=== PATIENT | male | born 1955 | race Caucasian/White ===

== ENCOUNTER 2020-01-01 11:41 | Outpatient (CLI) | payer OTHER, SELFPAY ==
--- NOTE | 2020-01-01 12:46 | ECG_ITS ---
Measurements Intervals [place] Rate: 71 P: 57 PA: 221 QRS: -21 QRSD: 79 T: 17 QT: 393 QTc: 428 Interpretive Statements SINUS RHYTHM WITH FIRST DEGREE AV BLOCK DELAYED PRECORDIAL R/S TRANSITION ABNORMAL ECG Electronically Signed On 01-01-2020 13:08:39 CDT by Jayro Mosley D.O.
[2020-01-01 13:36] LABS: Basophils Absolute Auto 0.1 K/mm3 (0.0-0.1); Basophils Percent Auto 1.1 % (0.2-1.2); Eosinophils Absolute Auto 0.1 K/mm3 (0-0.3); Hematocrit 44.5 % (42.0-52.0); Immature Granulocyte Absolute 0.01 K/mm3 (0.00-0.031); Immature Granulocyte Percent A 0.2 % (0-0.5); Lymphocytes Absolute Auto 2.42 K/mm3 (0.9-3.2); Lymphocytes Percent Auto 36.3 % (18.3-44.2); Mean Corpuscular HGB Conc 33.7 g/dl (32-36); Mean Corpuscular Hemoglobin 31.6 pg (26-34); Mean Corpuscular Volume 93.9 fl (80-100); Mean Platelet Volume 9.9 fl (7.4-10.4); Monocytes Absolute Auto 0.4 K/mm3 (0.1-0.6); Monocytes Percent Auto 6.2 % (2.6-8.5); Neutrophils Absolute Auto 3.6 K/mm3 (1.3-6.7); Neutrophils Percent Auto 54.2 % (45.5-73.1); Platelet Count Result 231 k/mm3 (150-375); Red Blood Count 4.74 M/mm3 (4.6-6.20); Red Cell Distribution Width 13.2 % (11.5-14.5); White Blood Count 6.7 K/mm3 (4.5-10.0)
[2020-01-01 13:39] LABS: Add Urine Microscopic? YES; Appearance Urine Clear (Clear); Bilirubin Urine Negative (Negative); Blood Urine Negative (Negative); Color Urine Colorless (Yellow); Glucose Urine UA Negative (Negative); Ketones Urine Negative (Negative); Leukocyte Esterase Ur Negative LEU/UL (Negative); Nitrate Urine Negative (Negative); Protein Urine Negative (Negative); RBC Urine 0-2 /hpf (0-2); Specific Grav Ur 1.006 (1.001-1.035); Urobilinogen Urine Negative mg/dL (<2.0); WBC Urine 0-3 /hpf
[2020-01-01 13:49] LABS: Hemoglobin A1C 5.6 % (<5.7); Urine Cotinine NEGATIVE
[2020-01-01 13:51] LABS: INR 1.1; Prothrombin Time 13.5 Seconds (11.1-14.7)
[2020-01-01 13:52] LABS: Partial Thromboplastin Time 26.4 SECONDS (22.3-36.8)
== END 2020-01-01 11:42 | disposition home or self-care (01) ==
LOC: ANHSURGERY 11:43
PROVIDERS: PCP Emergency Medicine; Visit Provider Orthopaedic Surgery
DX: Z01.818 Encounter for other preprocedural examination (principal); M17.11 Unilateral primary osteoarthritis, right knee; R94.31 Abnormal electrocardiogram [ECG] [EKG]
CPT/HCPCS: 36415; 80307; 81001; 83036; 85025; 85610; 85730; 86850; 86900; 86901; 87081; 93005

== ENCOUNTER 2020-01-06 06:23 | Outpatient (CLI) | payer OTHER, SELFPAY ==
[2020-01-06 17:27] LABS: SARS-CoV-2 RNA PCR Negative
== END 2020-01-06 06:24 | disposition home or self-care (01) ==
LOC: ANHCOVIDDT 06:23
PROVIDERS: PCP Emergency Medicine; Visit Provider Orthopaedic Surgery
DX: Z01.812 Encounter for preprocedural laboratory examination (principal); Z11.59 Encounter for screening for other viral diseases
CPT/HCPCS: 87635; C9803; U0003

== ENCOUNTER 2020-01-10 14:30 | Observation (INO) | payer OTHER, SELFPAY ==
[2020-01-01 12:02] VITALS: BMI 37.6
[2020-01-01 12:48] VITALS: BP 137/72; PULSE 72; RESP 18; TEMP 37.1; O2SAT 99
[2020-01-09] VITALS (11 sets, daily range): BP systolic 107–129; BP diastolic 56–75; PULSE 66–98; RESP 10–20; TEMP 35.9–36.7; O2SAT 67–100; BMI 36.4; BMI 37.8
[2020-01-09] MEDS: LACTATED RINGERS 1,000 ML 30 ML IV CONT ×2 (11:45→15:11)
--- NOTE | 2020-01-09 12:04 | WPDHPUPDATE1 ---
History and Physical Update Update Date/Time: 01/09/20 12:04 History and Physical has been reviewed, including an updated exam of the patient. There are NO changes in the patient's condition. Risks, benefits, and alternatives have been discussed and questions answered. Patient agrees to proceed with procedure.
[2020-01-09] MEDS: TRANEXAMIC ACID 1,000MG/ISO100 1,000 MG/100 ML BAG 200 MG IVPB (12:12)
--- NOTE | 2020-01-09 12:27 | WPDANESEPPF ---
Anes - Initial Pre Proc Eval Procedure: Operation Date: 01/09/20 13:00 Proposed Procedures p Right Total Knee Arthroplasty - Juan Jones MD Date/Time: 01/09/20 12:27 Surgeon: Juan Jones MD Pre Op Diagnosis: Right Knee DJD Patient Data Age: 64 Gender: M Height: 6 ft 1 in Weight: 125.4 kg Last Vital Signs Temp 37.1 C 01/01/20 12:48 Pulse 72 01/01/20 12:48 Resp 18 01/01/20 12:48 BP 137/72 01/01/20 12:48 Pulse Ox 99 01/01/20 12:48 Allergies Allergy/AdvReac Type Severity Reaction Status Date / Time No Known Allergies Allergy Verified 01/01/20 12:04 Home Medications Medication Instructions Recorded Confirmed Type cholecalciferol (vitamin D3) 25 2,000 unit PO DAILY cap 06/05/19 01/09/20 History mcg (1,000 unit) capsule latanoprost 0.005 % eye drops 1 drop EACH EYE HS 06/05/19 01/09/20 History chlorhexidine gluconate 4 % 1 applic TOPICAL ONCE #237 ml 12/21/19 01/01/20 Rx topical liquid ascorbic acid (vitamin C) 1 g PO DAILY 01/01/20 01/09/20 History cetirizine [Zyrtec] 10 mg PO DAILY PRN 01/01/20 01/09/20 History ibuprofen 200 mg PO Q6H PRN 01/01/20 01/09/20 History Patient hx anesthesia problems: none Family hx anesthesia problems: none PMFSH Past Medical History Medical History Arthritis Dizziness Sleep apnea Vision abnormalities Weight gain Family History Family History Mother Family history of Alzheimer's disease, Onset Age: 81 Father Family history of renal failure, Onset Age: 91 Other Family history of arthritis Family history of malignant neoplasm Social History Social History Smoking packs per day: 1.5 Smoking cigarettes per day: 30.0 Years smoked: 12 Smoking pack-years: 18.00 Smoking status: Former smoker Tobacco type: cigarettes Second hand tobacco smoke exposure: No Alcohol intake: current Alcohol use details: ONE DRINK EVERY 2 MONTHS Substance use type: does not use Living arrangements: with family Spiritual care concerns: No Anes - Eval Final PreProcedure Day of Procedure 01/09/20 12:27 Patient weight: obese Heart: regular rate and rhythm Lungs: decreased breath sounds Airway: Mallampati scale class II Neurological: alert and oriented Last oral intake: >/= 8 hours ASA classification: III Emergent: no Anesthetic plan: proceed Anesthesia type and monitoring: general LMA and standard monitoring Informed Consent: The patient's anesthetic plan and its attendant risks and benefits were discussed with the patient/family/POA. Questions were solicited and answers provided to the satisfaction of the patient/family/POA.
[2020-01-09] MEDS: IBUPROFEN IV 800 MG/200 ML 800 MG/200 ML BAG 400 MG IVPB (12:42)
[2020-01-09] MEDS: ceFAZolin 3 GM/D5W 100 ML 100 ML IVPB (12:49)
[2020-01-09] MEDS: TRANEXAMIC ACID 1,000 MG/10 ML AMPUL 1000 MG IV PUSH (14:12)
--- NOTE | 2020-01-09 15:00 | PM.OP ---
Procedure Note - Brief Procedure Note - Brief Date of procedure: 01/09/20 Pre-op diagnosis: Right Knee DJD Post-op diagnosis: same Procedure performed: R TKA Anesthesia: GETA Surgeon: Juan Jones MD Estimated blood loss (mL): 200 Complications: No immediate complications Condition: stable Disposition: PACU
--- NOTE | 2020-01-09 15:15 | SUR.PHASEI ---
radiology here for xray
--- NOTE | 2020-01-09 15:34 | WPDANESPNB ---
Anes - Peripheral Nerve Block Date/Time: 01/09/20 15:34 I have discussed with the patient/family/POA the placement of a peripheral nerve block for post-operative pain management, including associated risks, benefits, complications, and side effects. Alternative methods of post-operative analgesia were detailed. Questions were solicited and answers provided to the satisfaction of the patient/family/POA. Time-Out: A pre-procedural Time-Out was completed immediately before starting the procedure and confirmed: Patient Identification, Site, Procedure, Patient Position and the Availability of Requisite Equipment. Clinical Indications: Acute post-operative pain management requested by the operative surgeon. Nerve Block Insertion Note Anes-nerve block: femoral right Patient position: supine Needle: 22 gauge, stimulating, insulated echogenic needle. Needle length: 80 mm Technique: nerve stimulation lost at (mA) (0.21) Technique comment: mid2mg [id number] Injectate: dexamethasone (mg) (4mg) and bupivacaine 0.25% with epi 5 mcg/ml (30ml) Observations: tolerated well Complications: none Procedure start time:: 123 Procedure end time:: 1234
--- NOTE | 2020-01-09 15:36 | SUR.PHASEI ---
Spouse updated Milana [phone]
--- NOTE | 2020-01-09 16:30 | ADMGEN ---
This patient, Alan Laws, was admitted to 2 Medical Room 260-. Patient/family oriented to hospital policies and general routines including ID bracelet, bed and alarms, visiting hours, pain management, procedures, bathroom and other care routines, personal items, smoking policy, room service/diet, and visiting hours. Valuables list has been completed. Information on how to activate the Rapid Response Team has been discussed. Patient/Family are encouraged to report perceived risks to care and to ask questions if they do not understand what they are told or what they should do.
[2020-01-09] MEDS: DOCUSATE SODIUM 100 MG CAPSULE PO (18:23)
[2020-01-09] MEDS: CELECOXIB 200 MG CAPSULE PO (18:23)
--- NOTE | 2020-01-09 19:00 | OP_ITS ---
DATE OF PROCEDURE: 01/09/2020 PREOPERATIVE DIAGNOSIS: Right knee degenerative joint disease. POSTOPERATIVE DIAGNOSIS: Right knee degenerative joint disease. PROCEDURE: Right total knee arthroplasty. ANESTHESIA: General. COMPLICATIONS: None. INDICATIONS: This is a 64-year-old male with severe arthrosis to the right knee. He was indicated for right total knee arthroplasty. DESCRIPTION OF PROCEDURE: The patient was taken to the operating room in stable condition and placed in supine position. General anesthesia was induced. Then, the right lower extremity was prepped and draped sterilely from the toes to the thigh. A midline skin incision made. Medial parapatellar arthrotomy was made. The patella was everted. There was severe arthrosis in all 3 compartments of the knee joint. An IM katie was placed in the tibia. The patient had approximately 20 degree flexion contracture prior to incision. A distal femoral cut was made removing approximately 12 mm of bone from the high side of the femur. The knee was sized then to 75, so a cutting block was placed in 3 degrees of external rotation. This also was in line with Whitesides line and the transepicondylar axis. Anterior, posterior, and chamfer cuts were made to the femur. The cuts were excellent. Next, an IM katie was placed in the tibia and a transtibial cut was made removing approximately 10 mm of bone from the high side of the tibia. The tibia was planed to a smooth surface. The cut was excellent. The posterior osteophytes from the femur were removed with an osteotome. An 83 tibial trial was placed and aligned with the 1/3rd medial aspect of the tibial tubercle and then a 75 femoral trial was placed and then a 10 CR poly was placed. The knee came out to full extension. There was no flexion contracture. There was good stability in varus valgus stress in both flexion extension. The patella tracked without any tilt and there was no excessive rollback in flexion. The 4 corners test was used on the tibial component to make sure that there was a smooth and plane surface. Next, the trials were removed and then the Biomet 83 tibial component was press-fit into place and there were no gaps and the fit was excellent. Next, the 75 femoral component then was press-fit into the femur. The cuts were excellent and flush with the components. Then, a 10 polyethylene liner CR type was tapped and secured into place. The knee came out to full extension, there was good stability with varus valgus stress. There was good anterior-posterior stability. The patella tracked without any tilt. There was no excessive rollback in flexion. The tourniquet was deflated. The bleeders were cauterized and then the knee was irrigated thoroughly with sterile Betadine, sterile water for 3 minutes. Then, the arthrotomy was approximated with #1 Vicryl suture, subcu tissues with 2-0 Vicryl, and the skin was approximated with angel. Wound was washed, placed sterile dressing. The patient then was extubated and sent to Recovery. Brielle I MT: Maylin
[2020-01-09] MEDS: LATANOPROST 0.005% OP SOLN 2.5 ML BTL 1 DROP EACH EYE (21:26)
[2020-01-09] MEDS: ceFAZolin 2 GM/D5W 50 ML 2 GM/50 ML BAG IVPB (21:26)
[2020-01-09] MEDS: diazePAM 5 MG TABLET PO (22:02)
[2020-01-09] MEDS: WATER FOR IRRIGATION, STERILE 1,000 ML BOTTLE 1000 ML (22:02)
--- NOTE | ~2020-01-10 | XR_ITS ---
EXAMINATION: XR knee RT 2V DATE: 01/09/2020 15:21 INDICATION: Total right knee arthroplasty. Postop. TECHNIQUE: 2 views of right knee were obtained. COMPARISON: Right knee radiograph 12/21/2019 FINDINGS: There is a total right knee arthroplasty without patellar resurfacing in near-anatomic alig nment. No fracture. There is gas in the soft tissues, consistent with recent surgery. Anterior skin s taples are noted. IMPRESSION: 1. Total right knee arthroplasty in near-anatomic alignment. Reviewed, dictated and finalized at location A.
[2020-01-10 01:50] VITALS: BP 126/67; PULSE 79; RESP 18; TEMP 36.4; O2SAT 100
--- NOTE | 2020-01-10 05:03 | PM.IMCN ---
Assessment and Plan Assessment and plan (1) S/P total knee arthroplasty: Code(s): Z96.659 - Presence of unspecified artificial knee joint Status: Acute Assessment and Plan: Continue Ortho recommendations. (2) Hyperlipidemia: Qualifiers: Hyperlipidemia type: unspecified Qualified Code(s): E78.5 - Hyperlipidemia, unspecified Code(s): E78.5 - Hyperlipidemia, unspecified Status: Chronic (3) Glaucoma: Qualifiers: Glaucoma type: other Laterality: unspecified laterality Qualified Code(s): H40.89 - Other specified glaucoma Code(s): H40.9 - Unspecified glaucoma Status: Chronic Assessment and Plan: Continue Glaucoma eye drops. (4) ANAN (obstructive sleep apnea): Code(s): G47.33 - Obstructive sleep apnea (adult) (pediatric) Status: Chronic Assessment and Plan: Continue CPAP Additional Plan Date of service was 01/10/2020 at 5 am. HPI Data of Consult Consult date: 01/11/20 Requesting Physician: Juan Jones MD Primary Care Provider: Monty Bustamante MD Consult Narrative Narrative: Thank you for consulting us to see this 64 year old male who is s/p right total knee arthroplasty. On my encounter with the patient he was asleep and I awoke him. He denies any complaints at this time. Denies any chest pain, fevers, chills, cough, abdominal pain, dysuria, hematuria, or diarrhea. Review of Systems Review of Systems: All systems reviewed & are unremarkable except as noted in HPI and below PMFSH Past Medical History Medical History Arthritis Dizziness Sleep apnea Vision abnormalities Weight gain Family History Family History Mother Family history of Alzheimer's disease, Onset Age: 81 Father Family history of renal failure, Onset Age: 91 Other Family history of arthritis Family history of malignant neoplasm Social History Social History Smoking packs per day: 1.5 Smoking cigarettes per day: 30.0 Years smoked: 12 Smoking pack-years: 18.00 Smoking status: Never smoker Tobacco type: cigarettes Second hand tobacco smoke exposure: No Alcohol intake: never Substance use: never Substance use type: does not use Gender identity (if verbalized by the patient): Male Spiritual care concerns: No Meds Home Medications and Allergies Home Medications Medication Instructions Recorded Confirmed Type cholecalciferol (vitamin D3) 25 2,000 unit PO DAILY cap 06/05/19 01/09/20 History mcg (1,000 unit) capsule latanoprost 0.005 % eye drops 1 drop EACH EYE HS 06/05/19 01/09/20 History chlorhexidine gluconate 4 % 1 applic TOPICAL ONCE #237 ml 12/21/19 01/09/20 Rx topical liquid ascorbic acid (vitamin C) 1 g PO DAILY 01/01/20 01/09/20 History cetirizine [Zyrtec] 10 mg PO DAILY PRN 01/01/20 01/09/20 History ibuprofen 200 mg PO Q6H PRN 01/01/20 01/09/20 History Allergies Allergy/AdvReac Type Severity Reaction Status Date / Time No Known Allergies Allergy Verified 01/01/20 12:04 Vital Signs Vital Signs - 24 hr 01/09/20 12:27 01/09/20 15:15 01/09/20 15:30 Temperature 35.9 C L 36.7 C Pulse Rate 69 81 69 Respiratory Rate 20 10 L 14 Blood Pressure 118/56 L 115/65 115/75 Pulse Oximetry 99 96 98 01/09/20 15:45 01/09/20 16:00 01/09/20 16:25 Temperature 36.4 C L Pulse Rate 73 67 68 Respiratory Rate 12 14 16 Blood Pressure 116/72 107/75 116/71 Pulse Oximetry 96 95 96 01/09/20 16:40 01/09/20 17:10 01/09/20 18:10 Temperature 36.2 C L 36.3 C L 36.1 C L Pulse Rate 71 98 66 Respiratory Rate 18 18 16 Blood Pressure 122/65 120/65 129/64 Pulse Oximetry 98 67 L 100 01/09/20 20:00 01/09/20 21:57 01/10/20 01:50 Temperature 36.4 C L 36.4 C L 36.4 C Pulse Rate 69 69 79 Respiratory Rate 2
[2020-01-10] MEDS: ceFAZolin 2 GM/D5W 50 ML 2 GM/50 ML BAG IVPB ×2 (05:05→12:25)
[2020-01-10 05:28] LABS: Basophils Percent Auto 0.1 % (0.2-1.2); Hematocrit 36.5 % (42.0-52.0); Hemoglobin 12.3 g/dL (14.0-18.0); Immature Granulocyte Absolute 0.07 K/mm3 (0.00-0.031); Immature Granulocyte Percent A 0.5 % (0-0.5); Lymphocytes Absolute Auto 1.49 K/mm3 (0.9-3.2); Lymphocytes Percent Auto 10.4 % (18.3-44.2); Mean Corpuscular HGB Conc 33.7 g/dl (32-36); Mean Corpuscular Hemoglobin 31.3 pg (26-34); Mean Corpuscular Volume 92.9 fl (80-100); Mean Platelet Volume 9.3 fl (7.4-10.4); Monocytes Absolute Auto 1.4 K/mm3 (0.1-0.6); Monocytes Percent Auto 9.6 % (2.6-8.5); Neutrophils Absolute Auto 11.4 K/mm3 (1.3-6.7); Neutrophils Percent Auto 79.4 % (45.5-73.1); Platelet Count Result 213 k/mm3 (150-375); Red Blood Count 3.93 M/mm3 (4.6-6.20); Red Cell Distribution Width 12.6 % (11.5-14.5); White Blood Count 14.3 K/mm3 (4.5-10.0)
[2020-01-10 05:46] LABS: Blood Urea Nitrogen 13 mg/dL (9-20); Calcium 8.6 mg/dL (8.4-10.2); Carbon Dioxide 25 mmol/L (22-30); Chloride 105 mmol/L (98-107); Estimated CRCL calculation 116 ml/min; Estimated Glomerular Filt Rate > 60; Glucose 127 mg/dL (75-110); Potassium 4.8 mmol/L (3.4-5.0); Sodium 134 mmol/L (137-145)
[2020-01-10 05:57] VITALS: BP 113/68; PULSE 83; RESP 18; TEMP 36.4; O2SAT 99
[2020-01-10] MEDS: LORATADINE 10 MG TABLET PO (08:15)
[2020-01-10] MEDS: CELECOXIB 200 MG CAPSULE PO ×2 (08:15→17:05)
[2020-01-10] MEDS: DOCUSATE SODIUM 100 MG CAPSULE PO ×2 (08:15→17:05)
[2020-01-10] MEDS: ASPIRIN 325 MG ENTERIC TABLET 650 MG PO (08:15)
[2020-01-10] MEDS: ASCORBIC ACID 500 MG TABLET 1000 MG PO (08:15)
[2020-01-10] MEDS: CHOLECALCIFEROL 1,000 UNIT TABLET 2000 UNITS PO (08:15)
--- NOTE | 2020-01-10 09:58 | WPDANESPN ---
Anes - Prog Note Post-Op Date/Time: 01/10/20 09:58 Cardiovascular status: normal Respiratory status: normal Airway patency: baseline Mental status: baseline Post-Op hydration status: normal Vital Signs: Last Vital Signs Temp 97.6 F 01/10/20 05:57 Pulse 83 01/10/20 05:57 Resp 18 01/10/20 05:57 BP 113/68 01/10/20 05:57 Pulse Ox 99 01/10/20 05:57 I/O: Intake & Output 01/09/20 01/10/20 01/10/20 23:59 07:59 15:59 Intake Total 250 550 240 Output Total 2475 Balance 250 -1925 240 Laboratory Tests 01/10/20 05:18 01/10/20 05:18 01/10/20 01/10/20 05:18 05:18 WBC 14.3 H RBC 3.93 L Hgb 12.3 L Hct 36.5 L MCV 92.9 MCH 31.3 MCHC 33.7 RDW 12.6 Plt Count 213 MPV 9.3 Immature Gran % (Auto) 0.5 Neut % (Auto) 79.4 H Lymph % (Auto) 10.4 L [place] % (Auto) 9.6 H Eos % (Auto) 0.0 Baso % (Auto) 0.1 L Lymph # (Auto) 1.49 [place] # (Auto) 1.4 H Eos # (Auto) 0.0 Baso # (Auto) 0.0 Abs Immat Gran (auto) 0.07 H Absolute Neuts (auto) 11.4 H Absolute Nucleated RBC 0.0 Nucleated RBC % 0.0 Sodium 134 L Potassium 4.8 Chloride 105 Carbon Dioxide 25 BUN 13 Creatinine 0.80 Estim Creat Clear Calc 116 Estimated GFR > 60 Glucose 127 H Calcium 8.6 Post-procedural complaints: none Patient Feedback: Patient satisfied with anesthetic care. continued pain relief from FNB
[2020-01-10 10:00] VITALS: BP 105/60; PULSE 94; RESP 18; TEMP 36.7; O2SAT 100
--- NOTE | 2020-01-10 11:21 | WPDPN ---
Progress Note: A&P Additional Plan POD 1 DOING WELL. CONTINUE PT Exam Extrem: Other: VSS AFEBRILE DRESSING DRY NV INTACT NEG HOMANS SIGN Objective Data Vital Signs Vital Signs: Vital Signs - 24 hr 01/09/20 12:27 01/09/20 15:15 01/09/20 15:30 Temperature 35.9 C L 36.7 C Pulse Rate 69 81 69 Respiratory Rate 20 10 L 14 Blood Pressure 118/56 L 115/65 115/75 Pulse Oximetry 99 96 98 01/09/20 15:45 01/09/20 16:00 01/09/20 16:25 Temperature 36.4 C L Pulse Rate 73 67 68 Respiratory Rate 12 14 16 Blood Pressure 116/72 107/75 116/71 Pulse Oximetry 96 95 96 01/09/20 16:40 01/09/20 17:10 01/09/20 18:10 Temperature 36.2 C L 36.3 C L 36.1 C L Pulse Rate 71 98 66 Respiratory Rate 18 18 16 Blood Pressure 122/65 120/65 129/64 Pulse Oximetry 98 67 L 100 01/09/20 20:00 01/09/20 21:57 01/10/20 01:50 Temperature 36.4 C L 36.4 C L 36.4 C Pulse Rate 69 69 79 Respiratory Rate 20 20 18 Blood Pressure 125/71 125/71 126/67 Pulse Oximetry 99 99 100 01/10/20 05:57 01/10/20 10:00 Temperature 36.4 C 36.7 C Pulse Rate 83 94 Respiratory Rate 18 18 Blood Pressure 113/68 105/60 Pulse Oximetry 99 100 Intake/Output Intake/Output: Intake & Output 01/07/20 01/08/20 01/09/20 01/10/20 23:59 23:59 23:59 23:59 Intake Total 650 790 Output Total 4245 Balance 650 -4912 Meds/Results Medications: Active Medications Generic Name Dose Route Start Last Admin Trade Name Freq PRN Reason Stop Dose Admin Acetaminophen 1,000 mg 01/09/20 16:12 Tylenol Tablet PO Q6H PRN Mild Pain (1-3) Hydrocodone Bitart/Acetaminophen 1 tab 01/09/20 17:00 01/10/20 08:16 [place] 7.5-325 Mg PO 1 tab Q4HR PARAG Administration Ascorbic Acid 1,000 mg 01/10/20 09:00 01/10/20 08:15 Vitamin C PO 1,000 mg DAILY PARAG Administration Aspirin 650 mg 01/10/20 09:00 01/10/20 08:15 Aspirin Ec PO 650 mg DAILY PARAG Administration Celecoxib 200 mg 01/09/20 17:00 01/10/20 08:15 Celebrex PO 200 mg BIDWM PARAG Administration Diazepam 5 mg 01/09/20 16:12 01/09/20 22:02 Valium Po PO 5 mg Q8H PRN Administration Spasms Diphenhydramine HCl 25 mg 01/09/20 16:12 Benadryl Inj IV PUSH Q6H PRN Itching Docusate Sodium 100 mg 01/09/20 17:00 01/10/20 08:15 Colace Capsule PO 100 mg BID PARAG Administration Cefazolin Sodium 2 gm in 50 mls @ 100 mls/hr 01/09/20 21:00 01/10/20 05:35 Ancef 2 Gm/D5w 50 Ml IVPB 01/10/20 13:29 Infused Q8H [facility] Infusion Latanoprost 1 drop 01/09/20 21:00 01/09/20 21:26 Xalatan EACH EYE 1 drop HS PARAG Administration Loratadine 10 mg 01/09/20 16:12 01/10/20 08:15 Claritin PO 10 mg DAILY PRN Administration Allergy Symptoms Morphine Sulfate 4 mg 01/09/20 16:12 Morphine Sulfate Inj IV PUSH Q2H PRN Breakthrough pain rated 7-10 Morphine Sulfate 2 mg 01/09/20 16:12 Morphine Sulfate Inj IV PUSH Q2H PRN Breakthrough pain rated 4-6 Naloxone HCl 0.1 mg 01/09/20 16:12 Narcan IV PUSH Q2M PRN Opiate Reversal Ondansetron HCl 4 mg 01/09/20 16:12 Zofran Inj IV PUSH Q4H PRN Nausea And Vomiting Oxycodone/Acetaminophen 1 tablet 01/09/20 16:12 Percocet 5-325 Mg PO Q4H PRN Pain Rated 4-6 Vitamin D 2,000 unit 01/10/20 09:00 01/10/20 08:15 Vitamin D PO 2,000 unit DAILY PARAG Administration Radiology Results: ITS Impressions Knee X-Ray 01/09/20 15:23 IMPRESSION: 1. Total right knee arthroplasty in near-anatomic alignment. Labs Labs: Laboratory Results - last 24 hr 01/10/20 01/10/20 05:18 05:18 WBC 14.3 H RBC 3.93 L Hgb 12.3 L Hct 36.5 L MCV 92.9 MCH 31.3 MCHC 33.7 RDW 12.6 Plt Count 213 MPV 9.3 Immature Gran % (Auto) 0.5 Neut % (Auto) 79.4 H Lymph % (Auto) 10.4 L [place] % (Auto) 9.6 H Eos % (Auto) 0.0 Baso % (Auto) 0.1 L Lymph # (Auto) 1.49 [place] # (Auto) 1.4 H
[2020-01-10 14:00] VITALS: BP 110/58; PULSE 96; RESP 18; TEMP 37.1; O2SAT 99
--- NOTE | 2020-01-10 15:57 | PM.IMPN ---
Progress Note: A&P Assessment and Plan (1) S/P total knee arthroplasty: Code(s): Z96.659 - Presence of unspecified artificial knee joint Status: Acute Assessment and Plan: -----Pt is doing well and plans to go home tomorrow. He is walking around but has not done stairs yet. Continue Ortho recommendations. (2) Glaucoma: Qualifiers: Glaucoma type: other Laterality: unspecified laterality Qualified Code(s): H40.89 - Other specified glaucoma Code(s): H40.9 - Unspecified glaucoma Status: Chronic Assessment and Plan: -----No acute issues. Continue Glaucoma eye drops. (3) ANNA (obstructive sleep apnea): Code(s): G47.33 - Obstructive sleep apnea (adult) (pediatric) Status: Chronic Assessment and Plan: -----Pts cpap is in the room. Continue with that. Additional Plan Date of service was 01/10/2020 at 5 am. Time Spent With Patient Time with patient: 25 - 35 minutes Subjective Date/time seen: 01/10/20 15:57 Interval history: Pt is a 64 y/o male here for elective right knee arthroplasty. Pt was seen today and has no complaints. he says his knee feels stiff but not really painful. He is eating and drinking okay. He is passing gas but has not had any BM. He denies CP, SOB, fevers, chills, abdominal pain, nausea or vomiting. Review of Systems Review of Systems: All systems reviewed & are unremarkable except as noted in HPI and below Exam Narrative: Exam Narrative: General: Well developed well nourished patient pt resting in bed in [facility] HEENT: normocephalic Neck: supple Neuro: Alert and oriented x4 CV:RRR Resp:CTA Abd: Soft, non distended. No pain to palpation. Positive bowel sounds Extremities: right leg with bandage intact without excessive erythema or bleeding. No pain to the calf. left leg WNL Objective Data Vital Signs Vital Signs: Vital Signs - 24 hr 01/09/20 16:00 01/09/20 16:25 01/09/20 16:40 Temperature 97.5 F L 97.1 F L Pulse Rate 67 68 71 Respiratory Rate 14 16 18 Blood Pressure 107/75 116/71 122/65 Pulse Oximetry 95 96 98 01/09/20 17:10 01/09/20 18:10 01/09/20 20:00 Temperature 97.3 F L 97.0 F L 97.5 F L Pulse Rate 98 66 69 Respiratory Rate 18 16 20 Blood Pressure 120/65 129/64 125/71 Pulse Oximetry 67 L 100 99 01/09/20 21:57 01/10/20 01:50 01/10/20 05:57 Temperature 97.5 F L 97.6 F 97.6 F Pulse Rate 69 79 83 Respiratory Rate 20 18 18 Blood Pressure 125/71 126/67 113/68 Pulse Oximetry 99 100 99 01/10/20 10:00 01/10/20 14:00 Temperature 98.0 F 98.7 F Pulse Rate 94 96 Respiratory Rate 18 18 Blood Pressure 105/60 110/58 L Pulse Oximetry 100 99 Intake/Output Intake/Output: Intake & Output 01/07/20 01/08/20 01/09/20 01/10/20 23:59 23:59 23:59 23:59 Intake Total 650 1080 Output Total 2475 Balance 650 -1395 Meds/Results Medications: Active Medications Generic Name Dose Route Start Last Admin Trade Name Freq PRN Reason Stop Dose Admin Acetaminophen 1,000 mg 01/09/20 16:12 Tylenol Tablet PO Q6H PRN Mild Pain (1-3) Hydrocodone Bitart/Acetaminophen 1 tab 01/09/20 17:00 01/10/20 12:25 [place] 7.5-325 Mg PO 1 tab Q4HR PARAG Administration Ascorbic Acid 1,000 mg 01/10/20 09:00 01/10/20 08:15 Vitamin C PO 1,000 mg DAILY PARAG Administration Aspirin 650 mg 01/10/20 09:00 01/10/20 08:15 Aspirin Ec PO 650 mg DAILY PARAG Administration Celecoxib 200 mg 01/09/20 17:00 01/10/20 08:15 Celebrex PO 200 mg BIDWM PARAG Administration Diazepam 5 mg 01/09/20 16:12 01/09/20 22:02 Valium Po PO 5 mg Q8H PRN Administration Spasms Diphenhydramine HCl 25 mg 01/09/20 16:12 Benadryl Inj IV PUSH Q6H PRN Itching Docusate Sodium 100 mg 01/09/20 17:00 01/10/20 08:15 Colace Capsule PO 100 mg BID PARAG Administration Latanoprost 1 drop 01/09/20 21:00 01/09/20 21:26 Xalatan EACH EYE 1 drop HS PARAG Adm
[2020-01-10 18:00] VITALS: BP 114/56; PULSE 86; RESP 18; TEMP 36.8; O2SAT 100
[2020-01-10 22:00] VITALS: BP 102/54; PULSE 82; RESP 16; TEMP 36.5; O2SAT 98
[2020-01-10] MEDS: diazePAM 5 MG TABLET PO (22:17)
[2020-01-10] MEDS: MORPHINE SULFATE 4 MG/ML INJ IV PUSH (22:17)
[2020-01-11 03:29] VITALS: BP 112/61; PULSE 89; RESP 16; TEMP 36.7; O2SAT 97
[2020-01-11] MEDS: diazePAM 5 MG TABLET PO (05:58)
[2020-01-11 06:13] VITALS: BP 113/55; PULSE 81; RESP 16; TEMP 36.7; O2SAT 100
[2020-01-11] MEDS: ASCORBIC ACID 500 MG TABLET 1000 MG PO (08:29)
[2020-01-11] MEDS: CELECOXIB 200 MG CAPSULE PO (08:29)
[2020-01-11] MEDS: CHOLECALCIFEROL 1,000 UNIT TABLET 2000 UNITS PO (08:30)
[2020-01-11] MEDS: ASPIRIN 325 MG ENTERIC TABLET 650 MG PO (08:33)
[2020-01-11] MEDS: DOCUSATE SODIUM 100 MG CAPSULE PO (08:43)
--- NOTE | 2020-01-11 08:49 | PM.PNORT ---
Progress Note: A&P Assessment and Plan (1) S/P total knee arthroplasty: Qualifiers: Laterality: right Qualified Code(s): Z96.651 - Presence of right artificial knee joint Code(s): Z96.659 - Presence of unspecified artificial knee joint Status: Acute Assessment and Plan: POD #2: RIGHT TKA VSS, afebrile. H/H Stable. Continue PT/OT. WBAT. Walker. Fall Risk. Continue DVT prophylaxis with Aspirin. SCDs. Incentive spirometry. HERIBERTO wrap to be removed today. Dressing to be changed today. Continue pain control. Ice knee. Dispo: Home with Home Health pending progress with PT/OT today. Subjective Subjective Date/Time Seen: 01/11/20 08:49 POD# 2: RIGHT TKA Pain well controlled. No BM since DOS. Passing flatus. No abdominal pain/distention. No other complaints. Wants to go home today if he passes stairs with PT/OT. Review of Systems Review of Systems: All systems reviewed & are unremarkable except as noted in HPI and below Constitutional: Constitutional: Denies fever(s) and Denies headache(s) ENT: Denies headache(s) Cardiovascular: Cardiovascular: Denies chest pain, Denies diaphoresis, Denies palpitations and Denies dyspnea Respiratory: Respiratory: Denies dyspnea Gastrointestinal: Gastrointestinal: Denies abdominal pain, Reports constipation (No BM since surgery- passing flatus ), Denies nausea and Denies vomiting Genitourinary: Genitourinary: Denies dysuria and Reports nocturia Musculoskeletal: Musculoskeletal: Denies myalgias, Reports arthralgias (Right Knee ), Reports joint swelling (Right Knee ), Reports muscle cramps (RLE ), Denies numbness and Denies tingling Neurologic: Denies headache(s) Endocrine: Endocrine: Denies palpitations Exam Const: General: comfortable and no acute distress Resp: Effort & Inspection: normal respiratory effort Cardio: Rate: regular rate Rhythm: regular rhythm GI: Inspection: non-distended GI Palp: Yes Soft to palpation, No Tenderness to palpation present (GI) and No Guarding due to palpation present (GI) Skin: Wounds: wounds noted Other: Incision c/d/i. No surrounding redness/warmth. No hematoma. Mild ecchymosis. No wound dehiscence Neuro: Cognition (Neuro): normal cognition Other: NV intact. Moves toes. Sensation intact to light touch. +ankle dorsiflexion/plantarflexion. Extrem: Right upper extremity: normal to inspection, full ROM and normal capillary refill Left upper extremity: normal to inspection, full ROM and normal capillary refill Right lower extremity: normal to inspection, full ROM (ROM limited due to recent surgical intervention ) and knee Details: tenderness (diffuse, mild ) and swelling (diffuse, mild ) Left lower extremity: normal to inspection Psych: Mental Status: mental status grossly normal Objective Data Vital Signs Vital Signs: Vital Signs - 24 hr 01/10/20 10:00 01/10/20 14:00 01/10/20 18:00 Temperature 36.7 C 37.1 C 36.8 C Pulse Rate 94 96 86 Respiratory Rate 18 18 18 Blood Pressure 105/60 110/58 L 114/56 L Pulse Oximetry 100 99 100 01/10/20 22:00 01/11/20 03:29 01/11/20 06:13 Temperature 36.5 C 36.7 C 36.7 C Pulse Rate 82 89 81 Respiratory Rate 16 16 16 Blood Pressure 102/54 L 112/61 113/55 L Pulse Oximetry 98 97 100 Intake/Output Intake/Output: Intake & Output 01/08/20 01/09/20 01/10/20 01/11/20 23:59 23:59 23:59 23:59 Intake Total 650 1820 520 Output Total 3075 600 Balance 650 -1255 -80 Meds/Results Medications: Active Medications Generic Name Dose Route Start Last Admin Trade Name Freq PRN Reason Stop Dose Admin Acetaminophen 1,000 mg 01/09/20 16:12 Tylenol Tablet PO Q6H PRN Mild Pain (1-3) Hydrocodone Bitart/Acetaminophen 1 tab 01/09/20 17:00 01/11/20 08:29 Nelson 7.5-325 Mg PO 1 tab Q4HR PARAG Administration Ascorbic Acid 1,000 mg 01/10/20 09:00 01/11/20 08:29 Vitamin C PO 1,000 mg DAILY PARAG Administration Aspirin 650
--- NOTE | 2020-01-11 09:43 | PM.IMPN ---
Progress Note: A&P Assessment and Plan (1) S/P total knee arthroplasty: Qualifiers: Laterality: right Qualified Code(s): Z96.651 - Presence of right artificial knee joint Code(s): Z96.659 - Presence of unspecified artificial knee joint Status: Acute Assessment and Plan: -----patient is doing well but did have some issues of pain overnight. He should continue to work with physical therapy while hospitalized and is okay to discharge from medicine perspective. Anticoagulation and pain medications per Ortho. (2) Hyperlipidemia: Qualifiers: Hyperlipidemia type: unspecified Qualified Code(s): E78.5 - Hyperlipidemia, unspecified Code(s): E78.5 - Hyperlipidemia, unspecified Status: Chronic Assessment and Plan: -----does not appear that the patient is on any home medications for this? Follow-up with primary care physician (3) Glaucoma: Qualifiers: Glaucoma type: other Laterality: unspecified laterality Qualified Code(s): H40.89 - Other specified glaucoma Code(s): H40.9 - Unspecified glaucoma Status: Chronic Assessment and Plan: -----no acute issues, continue eyedrops (4) ANNA (obstructive sleep apnea): Code(s): G47.33 - Obstructive sleep apnea (adult) (pediatric) Status: Chronic Assessment and Plan: -----continue with CPAP. Additional Plan Subjective Date/time seen: 01/11/20 09:43 Interval history: Pt is a 64 y/o male here for elective right knee arthroplasty. Pt was seen today had some pain overnight. He had to get IV morphine and Valium but but this did improve his pain. This morning he was in some pain as well and was able to take oral medication and is now down to 4/10. He has not worked physical therapy yet. He still not had a bowel movement. He is eating and drinking okay. Pt denies nausea, vomiting, fevers, chills, chest pain, sob, or abdominal pain. Exam Narrative: Exam Narrative: General: Well developed well nourished patient pt resting in bed in NAD HEENT: normocephalic Neck: supple Neuro: Alert and oriented x4 CV:RRR Resp:CTA Abd: Soft, non distended. No pain to palpation. Positive bowel sounds Extremities: right leg with bandage intact without excessive erythema or bleeding. There is some swelling to the right extremity likely from surgery, negative Homans sign. No pain to the calf. left leg WNL Objective Data Vital Signs Vital Signs: Vital Signs - 24 hr 01/10/20 10:00 01/10/20 14:00 01/10/20 18:00 Temperature 98.0 F 98.7 F 98.3 F Pulse Rate 94 96 86 Respiratory Rate 18 18 18 Blood Pressure 105/60 110/58 L 114/56 L Pulse Oximetry 100 99 100 01/10/20 22:00 01/11/20 03:29 01/11/20 06:13 Temperature 97.7 F 98.1 F 98.0 F Pulse Rate 82 89 81 Respiratory Rate 16 16 16 Blood Pressure 102/54 L 112/61 113/55 L Pulse Oximetry 98 97 100 Intake/Output Intake/Output: Intake & Output 01/08/20 01/09/20 01/10/20 01/11/20 23:59 23:59 23:59 23:59 Intake Total 650 1820 520 Output Total 3075 600 Balance 650 -1255 -80 Meds/Results Medications: Active Medications Generic Name Dose Route Start Last Admin Trade Name Freq PRN Reason Stop Dose Admin Acetaminophen 1,000 mg 01/09/20 16:12 Tylenol Tablet PO Q6H PRN Mild Pain (1-3) Hydrocodone Bitart/Acetaminophen 1 tab 01/09/20 17:00 01/11/20 08:29 Aurelia 7.5-325 Mg PO 1 tab Q4HR PARAG Administration Ascorbic Acid 1,000 mg 01/10/20 09:00 01/11/20 08:29 Vitamin C PO 1,000 mg DAILY PARAG Administration Aspirin 650 mg 01/10/20 09:00 01/11/20 08:33 Aspirin Ec PO 650 mg DAILY PARAG Administration Celecoxib 200 mg 01/09/20 17:00 01/11/20 08:29 Celebrex PO 200 mg BIDWM PARAG Administration Diazepam 5 mg 01/09/20 16:12 01/11/20 05:58 Valium Po PO 5 mg Q8H PRN Administration Spasms Diphenhydramine HCl 25 mg 01/09/20 16:12 Benadryl Inj
[2020-01-11 10:00] VITALS: BP 119/58; PULSE 92; RESP 16; TEMP 37.1; O2SAT 98
--- NOTE | 2020-01-11 13:48 | PM.DS ---
DS: Admitting Diagnosis Admitting Diagnosis Admitting Diagnosis: Unilateral primary osteoarthritis, right knee DS: Discharge Diagnosis Discharge Diagnosis (1) S/P total knee arthroplasty: Qualifiers: Laterality: right Qualified Code(s): Z96.651 - Presence of right artificial knee joint Code(s): Z96.659 - Presence of unspecified artificial knee joint Status: Acute Assessment and Plan: POD #2: RIGHT TKA VSS, afebrile. H/H Stable. Continue PT/OT. WBAT. Walker. Fall Risk. Continue DVT prophylaxis with Aspirin. SCDs. Incentive spirometry. HERIBERTO wrap to be removed today. Dressing to be changed today. Continue pain control. Ice knee. Dispo: Home with Home Health pending progress with PT/OT today. DS: Summary Hospital Course Reason for hospitalization: Right knee DJD Hospital Course: 64 year old male admitted s/p right TKA for postoperative pain and medical management. He had a stable hospitalization. He progressed well with PT/OT. The medicine team was consulted. He was found safe to be discharged home with home health. He will follow up in 3 weeks. Status at Discharge Functional status at discharge: uses cane/walker Overall status at discharge: patient is progressing back to baseline Time Spent with Patient Time attestation: Total time spent providing and/or coordinating discharge services: Exam Const: General: comfortable and no acute distress Resp: Effort & Inspection: normal respiratory effort Cardio: Rate: regular rate Rhythm: regular rhythm GI: Inspection: non-distended GI Palp: Yes Soft to palpation, No Tenderness to palpation present (GI) and No Guarding due to palpation present (GI) Skin: Wounds: wounds noted Other: Incision c/d/i. No surrounding redness/warmth. No hematoma. Mild ecchymosis. No wound dehiscence Neuro: Cognition (Neuro): normal cognition Other: NV intact. Moves toes. Sensation intact to light touch. +ankle dorsiflexion/plantarflexion. Extrem: Right upper extremity: normal to inspection, full ROM and normal capillary refill Left upper extremity: normal to inspection, full ROM and normal capillary refill Right lower extremity: normal to inspection, full ROM (ROM limited due to recent surgical intervention ) and knee Left lower extremity: normal to inspection Psych: Mental Status: mental status grossly normal Discharge Plan Discharge Attending physician on discharge: Bicalho,Juan S. Consulting providers: Sierra Garza Discharging Clinician: Roxana Perera Anticipated Discharge Date/Time: 01/11/20 13:45 Patient Disposition: Home Health Service Activity: may shower, no driving and follow weight bearing status Diet: as tolerated Wound Care Instructions: follow printed instructions Discharge Instructions: Per Care Coordination: [facility] has been arranged to follow at discharge. [facility] will contact you prior to their first visit. [facility] will follow for RN and PT/OT eval and treat. [facility] can be reached at [phone]. Post Op Total Knee Replacement Instructions Dr. Juan Jones ?Your dressing was changed today. You will be sent home with one additional dressing to be changed in 5 days by the home health RN. Your angel will be removed on the 14th day after surgery and steri-strips will be placed. ?You may shower with your dressing but do not submerge in a bath tub. ?Do not drive or operate machinery until you are released by Dr. Jones. ?Do not walk without a walker for any reason until you are released by Dr. Jones. ?Continue to use your ice machine. Please use a towel or pillow case to protect your skin before applying your ice machine. ?Do NOT place a pillow under your knee. You may use a pillow from the calf down if needed. ?You may begin use of your CPM machine at home if you have been given one pre-operatively. DO NOT USE WHILE YOU ARE SLEEPING. ?Your follow up
[2020-01-11 14:00] VITALS: BP 144/60; PULSE 105; RESP 18; TEMP 37.3; O2SAT 100
== END 2020-01-11 16:10 | disposition home health service (06) ==
LOC: ANHSURGERY 14:42 → ANH2MED 14:42
PROVIDERS: Admitting Provider Orthopaedic Surgery; PCP Emergency Medicine; Visit Provider Orthopaedic Surgery
PROC: (CPT 27447; principal; 2020-01-09 13:00)
DX: M17.11 Unilateral primary osteoarthritis, right knee (principal); G89.18 Other acute postprocedural pain; E78.5 Hyperlipidemia, unspecified; G47.33 Obstructive sleep apnea (adult) (pediatric); H40.9 Unspecified glaucoma; F17.210 Nicotine dependence, cigarettes, uncomplicated
CPT/HCPCS: 27447; 64447; 36415; 73560; 80048; 85025; 97110; 97116; 97161; 97165; 97530; 97535; A9270; C1713; C1776; G0378; J0171; J0690; J1100; J1170; J1741; J2250; J2270; J2405; J2704; J2795; J3010; J3370; J7040; J7120

== ENCOUNTER 2022-11-09 00:08 | Day surgery (SDC) | payer MEDICARE, OTHER, SELFPAY ==
[2022-10-28 14:49] VITALS: BMI 39.9
[2022-11-09 10:42] VITALS: BP 121/72; PULSE 81; RESP 18; TEMP 36.5; O2SAT 100; BMI 38.2
--- NOTE | 2022-11-09 10:44 | WPDANESEPPF ---
Anes - Initial Pre Proc Eval Procedure: Operation Date: 11/09/22 13:00 Proposed Procedures p Esophagogastroduodenoscopy & Colonoscopy - Joe Wade MD Date/Time: 11/09/22 10:44 Surgeon: Joe Wade MD Pre Op Diagnosis: diverticulitis, GERD, Melena Patient Data Age: 67 Gender: M Height: 1.85 m Weight: 137.3 kg Allergies Allergy/AdvReac Type Severity Reaction Status Date / Time bee venom protein (honey bee) Allergy Mild Anaphylaxis Verified 11/09/22 10:40 poison nataly extract Allergy Mild Unknown Verified 11/09/22 10:40 poison oak extract Allergy Mild Unknown Verified 11/09/22 10:40 poison sumac extract Allergy Mild Unknown Verified 11/09/22 10:40 Home Medications Medication Instructions Recorded Confirmed Type cholecalciferol (vitamin D3) 25 2,000 unit PO DAILY 06/05/19 11/09/22 History mcg (1,000 unit) capsule latanoprost 0.005 % eye drops 1 drop ophthalmic (eye) HS 06/05/19 11/09/22 History ascorbic acid (vitamin C) 1,000 mg 1 g PO DAILY 01/01/20 11/09/22 History tablet niacin 500 mg tablet 500 mg PO DAILY 01/19/22 11/09/22 History atorvastatin 20 mg tablet (Lipitor) 20 mg PO DAILY #90 tabs 05/18/22 11/09/22 Rx pantoprazole 40 mg tablet,delayed 40 mg PO QAM #90 tabs 10/13/22 11/09/22 Rx release (Protonix) Patient hx anesthesia problems: none Family hx anesthesia problems: none Results Review: All pre-operative results and documents have been reviewed as part of the pre-operative evaluation. [facility] Past Medical History Medical History (Updated 10/13/22 @ 13:21 by Carlitos Grewal MD) Amputation finger right index finger caught on tractor fanbelt, top cut off Arthritis Blood clots in stool Dizziness GERD (gastroesophageal reflux disease) Multiple atypical skin moles Sleep apnea Vision abnormalities Weight gain Surgical History Surgical History H/O arthroscopic knee surgery H/O colonoscopy 2016 repeat 10 years H/O vasectomy Family History Family History Mother Family history of Alzheimer's disease, Onset Age: 81 Father Family history of renal failure, Onset Age: 91 Skin cancer Other Family history of arthritis Family history of malignant neoplasm Social History Social History Smoking packs per day: 1.5 Smoking cigarettes per day: 30.0 Years smoked: 12 Smoking pack-years: 18.00 Smoking status: Former smoker Tobacco type: cigarettes Second hand tobacco smoke exposure: No Alcohol intake: current Alcohol use details: rare use, every couple of months - wine Substance use: never Substance use type: does not use Living arrangements: with family Occupation/Education: retired Gender identity (if verbalized by the patient): Male Spiritual care concerns: No Agree to blood products: Yes Anes - Eval Final PreProcedure Day of Procedure 11/09/22 10:44 Patient weight: morbidly obese Heart: regular rate and rhythm Lungs: clear to auscultation Airway: Mallampati scale class II Neurological: alert and oriented Last oral intake: >/= 8 hours ASA classification: III Emergent: no Anesthetic plan: proceed Anesthesia type and monitoring: general GIVS and standard monitoring Results Review: All pre-operative results and documents have been reviewed as part of the pre-operative evaluation. Informed Consent: The patient's anesthetic plan and its attendant risks and benefits were discussed with the patient/family/POA. Questions were solicited and answers provided to the satisfaction of the patient/family/POA.
[2022-11-09] MEDS: LACTATED RINGERS 1,000 ML 150 ML IV CONT (11:04)
--- NOTE | 2022-11-09 11:06 | PM.HPGS ---
History of Present Illness History of Present Illness Consent: Risks, benefits, and alternatives have been discussed and questions answered. Patient agrees to proceed with procedure. Chief complaint: diverticulitis, GERD, Melena Narrative: Alan Laws is a 67 year old male Presents for both colonoscopy in EGD. Patient initially diagnosed with diverticulitis at the [facility] in [place] many years ago. He was hospitalized. At that time felt blocked up. Since that discharge over the last 10 or 15 years he has had intermittent episodes of upper abdominal pain that gradually settles in the mid low abdomen. He at 1 time had follow-up MRI tests most recently was at least 10 years ago. He has been treated empirically for these episodes of pain with antibiotics. It was presumed that he had diverticulitis. States occasionally will have bright red blood per rectum sometimes with darker clots the follow-up. Usually after a bowel movement. He denies any fever. He has had no weight loss. Patient referred today for colonoscopy an EGD because of intermittent bright red blood, occasional clots of maroon blood subsequently. He states episodes of bleeding will occur approximately 1 time a week. Family history is noncontributory. Patient has never talked to a surgeon regarding surgery for possible diverticular disease. Review of Systems Review of Systems: Review of systems is noncontributory. [facility] Past Medical History Medical History (Updated 11/09/22 @ 11:09 by Joe Wade MD) Amputation finger right index finger caught on tractor fanbelt, top cut off Arthritis Blood clots in stool Dizziness GERD (gastroesophageal reflux disease) Multiple atypical skin moles Sleep apnea Vision abnormalities Weight gain Surgical History Surgical History H/O arthroscopic knee surgery H/O colonoscopy 2016 repeat 10 years H/O vasectomy Family History Family History Mother Family history of Alzheimer's disease, Onset Age: 81 Father Family history of renal failure, Onset Age: 91 Skin cancer Other Family history of arthritis Family history of malignant neoplasm Social History Social History Smoking packs per day: 1.5 Smoking cigarettes per day: 30.0 Years smoked: 12 Smoking pack-years: 18.00 Smoking status: Former smoker Tobacco type: cigarettes Second hand tobacco smoke exposure: No Alcohol intake: current Alcohol use details: rare use, every couple of months - wine Substance use: never Substance use type: does not use Living arrangements: with family Occupation/Education: retired Gender identity (if verbalized by the patient): Male Spiritual care concerns: No Agree to blood products: Yes Meds Home Medications and Allergies Home Medications Medication Instructions Recorded Confirmed Type cholecalciferol (vitamin D3) 25 2,000 unit PO DAILY 06/05/19 11/09/22 History mcg (1,000 unit) capsule latanoprost 0.005 % eye drops 1 drop ophthalmic (eye) HS 06/05/19 11/09/22 History ascorbic acid (vitamin C) 1,000 mg 1 g PO DAILY 01/01/20 11/09/22 History tablet niacin 500 mg tablet 500 mg PO DAILY 01/19/22 11/09/22 History atorvastatin 20 mg tablet (Lipitor) 20 mg PO DAILY #90 tabs 05/18/22 11/09/22 Rx pantoprazole 40 mg tablet,delayed 40 mg PO QAM #90 tabs 10/13/22 11/09/22 Rx release (Protonix) Allergies Allergy/AdvReac Type Severity Reaction Status Date / Time bee venom protein (honey bee) Allergy Mild Anaphylaxis Verified 11/09/22 10:40 poison nataly extract Allergy Mild Unknown Verified 11/09/22 10:40 poison oak extract Allergy Mild Unknown Verified 11/09/22 10:40 poison sumac extract Allergy Mild Unknown Verified 11/09/22 10:40 Vital Signs Vital Signs - 24
--- NOTE | 2022-11-09 11:31 | SUR.OPER ---
EGD START 1112, END 1115 COLONOSCOPY START 1120, END 1131
[2022-11-09 11:32] VITALS: BP 104/62; PULSE 89; RESP 19; O2SAT 98
[2022-11-09 11:42] VITALS: BP 114/60; PULSE 84; RESP 22; O2SAT 99
[2022-11-09 11:52] VITALS: BP 125/68; PULSE 81; RESP 23; O2SAT 99
--- NOTE | 2022-11-09 12:05 | SUR.PHASEII ---
pt waiting for crude oil driver at this time. crude oil driver stated approx 30 min away. pt provided call light and water.
== END 2022-11-09 12:40 | disposition home or self-care (01) ==
PROVIDERS: PCP Family Medicine; Visit Provider Internal Medicine Gastroenterology
PROC: 0DJ08ZZ Inspection of Upper Intestinal Tract, Via Natural or Artificial Opening Endoscopic (ICD-10-PCS; CPT 43235; principal; 2022-11-09 13:00)
DX: K64.8 Other hemorrhoids (principal); K57.30 Diverticulosis of large intestine without perforation or abscess without bleeding; Z87.19 Personal history of other diseases of the digestive system; K21.9 Gastro-esophageal reflux disease without esophagitis; G47.30 Sleep apnea, unspecified; Z87.891 Personal history of nicotine dependence; E66.01 Morbid (severe) obesity due to excess calories; Z68.38 Body mass index [BMI] 38.0-38.9, adult
CPT/HCPCS: 45378; 43235; J2704; J7120